=== PATIENT | female | born 1975 | race Caucasian/White ===

== ENCOUNTER 2020-04-30 06:15 | Observation (INO) | payer OTHER ==
[~2020-04-30 06:15] MED LIST: Lactated Ringers 1,000 ML IV SCH
[2020-04-30 07:08] LABS: BLOOD UREA NITROGEN,BUN 11 mg/dL (7.0-18.0); CARBON DIOXIDE,CO2 35.6 mmol/L (21.0-32.0); CHLORIDE,CL 100 mmol/L (98-107); GLUCOSE RANDOM 96 mg/dL (74-106); POTASSIUM,K 3.5 mmol/L (3.5-5.1); SODIUM,NA 141 mmol/L (136-145)
--- NOTE | 2020-04-30 07:33 | PCM.PREANE ---
Preanesthetic Assessment - Anesthesia/Transfusion/Family Hx Anesthesia History: Prior Anesthesia Without Reaction Family History of Anesthesia Reaction: No Transfusion History: No Prior Transfusion(s) Intubation History: Unknown - Review of Systems General: No Symptoms Pulmonary: No Symptoms Cardiovascular: No Symptoms Gastrointestinal: No Symptoms Neurological: No Symptoms Other: Reports: None - Physical Assessment NPO Status Date: 04/29/20 Height: 5 ft 2.5 in Weight: 72.575 kg ASA Class: 2 Mental Status: Alert & Oriented x3 Airway Class: Mallampati = 2 Dentition: Reports: Normal Dentition ROM/Head Extension: Full Lungs: Clear to Auscultation, Normal Respiratory Effort Cardiovascular: Regular Rate, Regular Rhythm - Lab Values: Laboratory Last Values Sodium 141 mmol/L (136-145) 04/30/20 06:35 Potassium 3.5 mmol/L (3.5-5.1) 04/30/20 06:35 Chloride 100 mmol/L (98-107) 04/30/20 06:35 Carbon Dioxide 35.6 mmol/L (21.0-32.0) H 04/30/20 06:35 BUN 11 mg/dL (7.0-18.0) 04/30/20 06:35 Creatinine 0.8 mg/dL (0.6-1.0) 04/30/20 06:35 Est Cr Clr Drug Dosing 71.09 mL/min 04/30/20 06:35 Estimated GFR (MDRD) > 60.0 ml/min 04/30/20 06:35 Glucose 96 mg/dL (74-106) 04/30/20 06:35 Calcium 9.6 mg/dL (8.5-10.1) 04/30/20 06:35 HCG, Qual NEGATIVE (NEG) 04/30/20 06:35 - Allergies Allergies/Adverse Reactions: Allergies Allergy/AdvReac Type Severity Reaction Status Date / Time No Known Allergies Allergy Verified 04/24/20 08:55 - Blood Blood Available: No - Anesthesia Plan Pre-Op Medication Ordered: None - Acknowledgements Anesthesia Type Planned: General Anesthesia Pt an Appropriate Candidate for the Planned Anesthesia: Yes Alternatives and Risks of Anesthesia Discussed w Pt/Guardian: Yes Pt/Guardian Understands and Agrees with Anesthesia Plan: Yes Additional Comments: PMH: htn, gerd, anxiety, mild AI PLAN: get PreAnesthesia Questionnaire HEENT History: Reports: Allergic Rhinitis, Other (See Below) Other HEENT History: wears glasses Cardiovascular History: Reports: Heart Murmur, High Cholesterol, Hypertension Other Cardiovascular History: systolic ejection murmur Respiratory History: Reports: None Gastrointestinal History: Reports: Other (See Below) Other Gastrointestinal History: occasional heartburn Genitourinary History: Reports: None COAT 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: Dysfunctional Uterine Bleeding, Musculoskeletal History: Reports: Fracture Other Musculoskeletal History: fx shoulder as a child Neurological History: Reports: None Psychiatric History: Reports: Anxiety, Depression Other Psychiatric History: dyslexia Endocrine/Metabolic History: Reports: None Hematologic History: Reports: Anemia Immunologic History: Reports: None Oncologic (Cancer) History: Reports: None Dermatologic History: Reports: None - Past Surgical History Head Surgeries/Procedures: Reports: None HEENT Surgical History: Reports: Oral Surgery Cardiovascular Surgical History: Reports: None Respiratory Surgical History: Reports: None GI Surgical History: Reports: None Female Surgical History: Reports: Section Other Female Surgeries/Procedures: hysteroscopy with polypectomy Endocrine Surgical History: Reports: None Neurological Surgical History: Reports: None Musculoskeletal Surgical History: Reports: None Oncologic Surgical History: Reports: None Dermatological Surgical History: Reports: None - SUBSTANCE USE Smoking Status *Q: Never Smoker Recreational Drug Use History: No - HOME MEDS Home Medications: Home Meds Aspirin [Adult Aspirin] 81 mg PO DAILY 10/08/18 [History] Citalopram [Citalopram HBr] 20 mg PO DAILY 10/08/18 [History] Ibuprofen 1 tab PO TID PRN 10/08/18 [History] Mometasone Furoate [Nasonex Andrew] 2 spray NASBOTH DAILY 10/08/18 [History] Multivitamin [Multivitamins] 1 tab PO DAILY 10/08/18 [History] Rosuvastatin [Crestor] 20 mg PO DAILY 10/08/18 [History] dilTIAZem HCL [Cardizem] 30 mg PO DAILY 10/08/18 [History] hydroCHLOROthiazide [Hydrochlorothiazide] 25 mg PO DAILY 10/08/18 [History] Cholecalciferol (Vitamin D3) [Vitamin D3] 5,000 units PO DAILY 04/24/20 [History] Fluconazole [Diflucan] 150 mg PO ASDIRECTED PRN 04/24/20 [History] - CURRENT (IN HOUSE) MEDS Current Meds: Current Medications Lactated Ringer's (Ringers, Lactated) 1,000 mls @ 125 mls/hr IV ASDIRECTED KARLIE
[2020-04-30] MEDS ORDERED: Ondansetron 4 MG/2 ML SDV ONE (08:15)
[2020-04-30] MEDS ORDERED: Propofol 200 MG/20 ML SDV ONE (08:15)
[2020-04-30] MEDS ORDERED: Midazolam 1 MG/ML 2 ML SDV ONE (08:16)
[2020-04-30] MEDS ORDERED: Dexamethasone 4 MG/ML 5 ML MDV ONE (08:16)
[2020-04-30] MEDS ORDERED: fentaNYL 100 MCG/2 ML SDV ONE (08:16)
[2020-04-30] MEDS ORDERED: Glycopyrrolate 0.2 MG/ML SDV ONE (08:16)
[2020-04-30] MEDS ORDERED: Rocuronium Bromide 50 MG/5 ML Syringe ONE ×2 (08:16→09:21)
[2020-04-30] MEDS ORDERED: Ketorolac 30 MG/ML SDV ONE (08:16)
[2020-04-30] MEDS ORDERED: Morphine 10 MG/ML Syringe ONE (08:26)
[2020-04-30] MEDS ORDERED: Sugammadex Sodium 200 MG/2 ML VIAL ONE (08:27)
[2020-04-30] MEDS ORDERED: Fluorescein 5 ML Vial ONE (08:27)
[2020-04-30] MEDS ORDERED: Bupivacaine 0.25% 10 ML SDV ONE (08:28)
[2020-04-30] MEDS ORDERED: Methylene Blue 50 MG/10 ML Ampule ONE (08:28)
[2020-04-30] MEDS ORDERED: Morphine 4 MG/ML Syringe IVPUSH ONE (09:33)
[2020-04-30] MEDS ORDERED: Furosemide 40 MG/4 ML VIAL ONE (11:20)
[2020-04-30] MEDS ORDERED: Ondansetron 4 MG/2 ML SDV IVPUSH PRN (11:58)
[2020-04-30] MEDS ORDERED: Promethazine 25 MG/ML SDV IM PRN (11:58)
[2020-04-30] MEDS ORDERED: Ketorolac 30 MG/ML SDV IVPUSH ONE (11:58)
[2020-04-30] MEDS ORDERED: Morphine 4 MG/ML Syringe IVPUSH PRN (11:58)
[2020-04-30] MEDS ORDERED: Acetaminophen/oxyCODONE 325-5 MG Tab PO PRN (11:58)
--- NOTE | 2020-04-30 12:04 | PCM.OPNOTE ---
- General Post-Op/Procedure Note Date of Surgery/Procedure: 04/30/20 Operative Procedure(s): Laparoscopic-assisted vaginal hysterectomy, bilateral salpingectomy, cystoscopy, lysis of adhesions Findings: Omental adhesions to anterior abdominal wall Enlarged uterus, 10-week size Adhesions of bladder to uterus Normal-appearing ovaries, fallopian tubes, and ureters Bilateral ureteral efflux and normal bladder Pre Op Diagnosis: 44yo with heavy menstruation and dysmenorrhea Post-Op Diagnosis: 44yo with heavy menstruation and dysmenorrhea. Adhesive disease of omentum to anterior abdominal wall and bladder to uterus Anesthesia Technique: General ET Tube Primary Surgeon: Padmaja Rudd Packerhead Machine Operator: Radhika Chirstopher Packerhead Machine Operator: Rasheed Francisco Pathology: Uterus, cervix, bilateral fallopian tubes Fluid Replacement, Intraop: 1,900 Output, Urine Amount: 120 EBL in mLs: 200 Complications: None Condition: Good
[2020-04-30] MEDS ORDERED: HYDROmorphone 2 MG/ML Syringe IVPUSH ONE (12:10)
[2020-04-30] MEDS ORDERED: HYDROmorphone 2 MG/ML Syringe ONE (12:13)
[2020-04-30] MEDS: Acetaminophen/oxyCODONE 325-5 MG Tab PO PRN ×2 (15:51→20:02)
[2020-04-30] MEDS: Ketorolac 30 MG/ML SDV IVPUSH PRN (18:31)
[2020-04-30] MEDS: diphenhydrAMINE 25 MG Cap PO PRN (22:31)
[2020-05-01] MEDS: Acetaminophen/oxyCODONE 325-5 MG Tab PO PRN (01:25)
[2020-05-01] MEDS: diphenhydrAMINE 25 MG Cap PO PRN (04:21)
[2020-05-01] MEDS: Ketorolac 30 MG/ML SDV IVPUSH PRN (04:48)
[2020-05-01 06:50] LABS: BLOOD UREA NITROGEN,BUN 9 mg/dL (7.0-18.0); CARBON DIOXIDE,CO2 31.9 mmol/L (21.0-32.0); CHLORIDE,CL 99 mmol/L (98-107); GLUCOSE RANDOM 126 mg/dL (74-106); POTASSIUM,K 3.7 mmol/L (3.5-5.1); SODIUM,NA 137 mmol/L (136-145)
--- NOTE | 2020-05-01 07:30 | PCM.PN ---
- General Info Date of Service: 05/01/20 Admission Dx/Problem (Free Text): Post [facility] Subjective Update: Pt feeling well today. She did have a mild reaction after taking her percocet. She felt itchy and may have had a rash. Symptoms improved after administration of benadryl. Pain has been well-controlled with medication. She has been ambulating. She has voided urine. She has not yet had a bowel movement and notes her abdomen has been a bit distended. She has been tolerating oral diet with no nausea or vomiting. Functional Status: Reports: Pain Controlled, Tolerating Diet - Review of Systems General: Reports: No Symptoms HEENT: Reports: No Symptoms Pulmonary: Reports: No Symptoms Cardiovascular: Reports: No Symptoms Gastrointestinal: Reports: Abdominal Pain, Constipation, Other (bloating) Genitourinary: Reports: No Symptoms Musculoskeletal: Reports: No Symptoms Skin: Reports: No Symptoms Neurological: Reports: No Symptoms Psychiatric: Reports: No Symptoms - Patient Data Vitals - Most Recent: Last Vital Signs Temp 98.4 F 05/01/20 04:41 Pulse 75 05/01/20 04:41 Resp 16 05/01/20 04:41 BP 131/69 05/01/20 04:41 Pulse Ox 94 L 05/01/20 04:41 Weight - Most Recent: 160 lb I&O - Last 24 Hours: Intake & Output 04/30/20 05/01/20 05/01/20 22:59 06:59 14:59 Intake Total 1800 1800 Output Total 450 2100 Balance 1350 -300 Lab Results Last 24 Hours: Laboratory Results - last 24 hr 04/30/20 04/30/20 04/30/20 Range/Units 06:30 06:35 06:35 WBC 7.02 (4.0-11.0) K/uL RBC 5.83 (4.30-5.90) M/uL Hgb 15.5 (12.0-16.0) g/dL Hct 46.4 H (36.0-46.0) % MCV 79.6 L (80.0-98.0) fL MCH 26.6 L (27.0-32.0) pg MCHC 33.4 (31.0-37.0) g/dL Plt Count 294 (150-400) K/uL MPV 8.90 (7.40-12.00) fL Neut % (Auto) 52.1 (48.0-80.0) % Lymph % (Auto) 34.8 (16.0-40.0) % Ramsey % (Auto) 9.5 (0.0-15.0) % Eos % (Auto) 3.3 (0.0-7.0) % Baso % (Auto) 0.3 (0.0-1.5) % Neut # (Auto) 3.7 (1.4-5.7) K/uL Lymph # (Auto) 2.4 (0.6-2.4) K/uL Ramsey # (Auto) 0.7 (0.0-0.8) K/uL Eos # (Auto) 0.2 (0.0-0.7) K/uL Baso # (Auto) 0.0 (0.0-0.1) K/uL Nucleated RBC % 0.0 /100WBC Nucleated RBCs # 0 K/uL Sodium (136-145) mmol/L Potassium (3.5-5.1) mmol/L Chloride (98-107) mmol/L Carbon Dioxide (21.0-32.0) mmol/L BUN (7.0-18.0) mg/dL Creatinine (0.6-1.0) mg/dL Est Cr Clr Drug Dosing mL/min Estimated GFR (MDRD) ml/min Glucose (74-106) mg/dL Calcium (8.5-10.1) mg/dL SARS Virus RNA (PCR) NEGATIVE (NEGATIVE) Blood Type A NEGATIVE Antibody Screen NEGATIVE 05/01/20 05/01/20 Range/Units 05:48 05:48 WBC 12.64 H (4.0-11.0) K/uL RBC 4.91 (4.30-5.90) M/uL Hgb 12.7 (12.0-16.0) g/dL Hct 39.4 (36.0-46.0) % MCV 80.2 (80.0-98.0) fL MCH 25.9 L (27.0-32.0) pg MCHC 32.2 (31.0-37.0) g/dL Plt Count 287 (150-400) K/uL MPV 9.50 (7.40-12.00) fL Neut % (Auto) 84.7 H (48.0-80.0) % Lymph % (Auto) 9.2 L (16.0-40.0) % Ramsey % (Auto) 6.1 (0.0-15.0) % Eos % (Auto) 0.0 (0.0-7.0) % Baso % (Auto) 0.0 (0.0-1.5) % Neut # (Auto) 10.7 H (1.4-5.7) K/uL Lymph # (Auto) 1.2 (0.6-2.4) K/uL Ramsey # (Auto) 0.8 (0.0-0.8) K/uL Eos # (Auto) 0.0 (0.0-0.7) K/uL Baso # (Auto) 0.0 (0.0-0.1) K/uL Nucleated RBC % 0.0 /100WBC Nucleated RBCs # 0 K/uL Sodium 137 (136-145) mmol/L Potassium 3.7 (3.5-5.1) mmol/L Chloride 99 (98-107) mmol/L Carbon Dioxide 31.9 (21.0-32.0) mmol/L BUN 9 (7.0-18.0) mg/dL Creatinine 0.6 (0.6-1.0) mg/dL Est Cr Clr Drug Dosing 94.79 mL/min Estimated GFR (MDRD) > 60.0 ml/min Glucose 126 H (74-106) mg/dL Calcium 8.8 (8.5-10.1) mg/dL SARS Virus RNA (PCR) (NEGATIVE) Blood Type Antibody Screen Med Orders - Current: Current Medications Citalopram Hydrobromide (Celexa) 20 mg PO DAILY [facility] Diltiazem HCl (Cardizem Cd) 120 mg PO DAILY KARLIE Diphenhydramine HCl (Benadryl) 25 mg PO Q6H PRN PRN Reason: Itching Last Admin: 05/01/20 04:21 Dose: 25 mg Documented by: Hydrochlorothiazide (Hydrochlorothiazide) 25 mg PO DAILY KARLIE Lactated Ringer's (Ringers, Lactated) 1,000 mls @ 125 mls/hr IV ASDIRECTED KARLIE Last Admin: 04/30/20 07:51 Dose: 125 mls/hr Documented by: Ibuprofen (Motrin) 800 mg PO Q8H PRN PRN Reason: Pain (mild 1-3) Ketorolac Tromethamine (Toradol) 30 mg IVPUSH Q6H PRN PRN Reason: Pain (severe 7-10) Stop: 05/01/20 11:59 Last Admin: 05/01/20 04:48 Dose: 30 mg Documented by: Mometasone Furoate (Nasonex [place]) 0 gm NASBOTH DAILY [facility] Morphine Sulfate (Morphine) 4 mg IVPUSH Q2H PRN PRN Reason: Pain (severe 7-10) Last Admin: 04/30/20 22:49 Dose: 4 mg Documented by: Ondansetron HCl (Zofran) 4 mg IVPUSH Q6H PRN PRN Reason: Nausea/Vomiting Oxycodone/Acetaminophen (Percocet 325-5 Mg) 1 tab PO Q4H PRN PRN Reason: Pain (moderate 4-6) Last Admin: 05/01/20 01:25 Dose: 1 tab Documented by: Oxycodone/Acetaminophen (Percocet 325-5 Mg) 2 tab PO Q4H PRN PRN Reason: Pain (moderate 4-6) Promethazine HCl (Phenergan) 25 mg IM Q6H PRN PRN Reason: Nausea/Vomiting Rosuvastatin Calcium (Crestor) 20 mg PO DAILY KARLIE Discontinued Medications Bupivacaine HCl (Sensorcaine-Mpf 0.25%) Confirm Administered Dose 10 ml .ROUTE .STK-MED ONE Stop: 04/30/20 08:29 Dexamethasone (Dexamethasone) Confirm Administered Dose 20 mg .ROUTE .STK-MED ONE Stop: 04/30/20 08:17 Fentanyl (Sublimaze) Confirm Administered Dose 200 mcg .ROUTE .STK-MED ONE Stop: 04/30/20 08:17 Fluorescein Sodium (Ak-Fluor) Confirm Administered Dose 5 ml .ROUTE .STK-MED ONE Stop: 04/30/20 08:28 Furosemide (Lasix) Confirm Administered Dose 40 mg .ROUTE .STK-MED ONE Stop: 04/30/20 11:21 Glycopyrrolate (Robinul) Confirm Administered Dose 0.2 mg .ROUTE .STK-MED ONE Stop: 04/30/20 08:17 Hydromorphone HCl (Dilaudid) 1 mg IVPUSH ONETIME ONE Stop: 04/30/20 12:11 Last Admin: 04/30/20 12:17 Dose: 1 mg Documented by: Hydromorphone HCl (Dilaudid) Confirm Administered Dose 2 mg .ROUTE .STK-MED ONE Stop: 04/30/20 12:14 Last Admin: 04/30/20 13:44 Dose: Not Given Documented by: Acetaminophen (Ofirmev) Confirm Administered Dose 100 mls @ as directed .ROUTE .STK-MED ONE Stop: 04/30/20 08:28 Ketorolac Tromethamine (Toradol) Confirm Administered Dose 30 mg .ROUTE .STK-MED ONE Stop: 04/30/20 08:17 Ketorolac Tromethamine (Toradol) 30 mg IVPUSH ONETIME ONE Stop: 04/30/20 11:59 Last Admin: 04/30/20 12:14 Dose: 30 mg Documented by: Methylene Blue (Provayblue) Confirm Administered Dose 50 mg .ROUTE .STK-MED ONE Stop: 04/30/20 08:29 Midazolam HCl (Versed 1 Mg/Ml) Confirm Administered Dose 2 mg .ROUTE .STK-MED ONE Stop: 04/30/20 08:17 Morphine Sulfate (Morphine) Confirm Administered Dose 10 mg .ROUTE .STK-MED ONE Stop: 04/30/20 08:27 Morphine Sulfate (Morphine) 4 mg IVPUSH ONETIME ONE Stop: 04/30/20 09:34 Last Admin: 04/30/20 12:01 Dose: 4 mg Documented by: Ondansetron HCl (Zofran) Confirm Administered Dose 4 mg .ROUTE .STK-MED ONE Stop: 04/30/20 08:16 Propofol (Diprivan 20 Ml) Confirm Administered Dose 400 mg .ROUTE .STK-MED ONE Stop: 04/30/20 08:16 Rocuronium [place] (Rocuronium [place]) Confirm Administered Dose 50 mg .ROUTE .STK-MED ONE Stop: 04/30/20 08:17 Rocuronium [place] (Rocuronium [place]) Confirm Administered Dose 50 mg .ROUTE .STK-MED ONE Stop: 04/30/20 09:22 Sugammadex Sodium (Bridion) Confirm Administered Dose 200 mg .ROUTE .STK-MED ONE Stop: 04/30/20 08:28 - Exam General: Alert, Oriented, No Acute Distress HEENT: Pupils Equal, Pupils Reactive, EOMI Neck: Supple, Trachea Midline, No JVD Lungs: Clear to Auscultation, Normal Respiratory Effort. No: Rhonchi, Rub, Stridor, Wheezing Cardiovascular: Regular Rate, Regular Rhythm, Murmurs (systolic murmur). No: Gallops, Rubs GI/Abdominal Exam: Normal Bowel Sounds, Soft, Distended, Tender. No: Guarding, Rigid (Female) Exam: Deferred Extremities: Normal Inspection, Non-Tender, No Pedal Edema Skin: Warm, Intact Wound/Incisions: Dressing Dry and Intact. No: Erythema Neurological: No New Focal Deficit, Normal Speech, Normal Tone Psy/Mental Status: Alert, Normal Affect, Normal Mood Sepsis Event Note - Evaluation Sepsis Screening Result: No Definite Risk - Focused Exam Vital Signs: Vital Signs Temp Pulse Resp BP Pulse Ox 05/01/20 04:41 98.4 F 75 16 131/69 94 L 04/30/20 19:43 99.0 F 82 16 116/69 96 Date Exam was Performed: 05/01/20 Time Exam was Performed: 07:36 - Problem List & Annotations (1) S/P laparoscopic assisted vaginal hysterectomy (LAVH) SNOMED Code(s): 925606981, 81407122, 392719841 Code(s): Z90.710 - ACQUIRED ABSENCE OF BOTH CERVIX AND UTERUS Status: Acute Current Visit: Yes - Problem List Review Problem List Initiated/Reviewed/Updated: Yes - Assessment Assessment:: 44yo female s/p LAVH. No complications. POD#1 - Plan Plan:: Routine care Discharge today.
--- NOTE | 2020-05-01 08:13 | PCM48HPAN ---
Post Anesthesia Note - EVALUATION WITHIN 48HRS OF ANESTHETIC Vital Signs in Normal Range: Yes Patient Participated in Evaluation: Yes Respiratory Function Stable: Yes Airway Patent: Yes Cardiovascular Function Stable: Yes Hydration Status Stable: Yes Pain Control Satisfactory: Yes (bloating) Nausea and Vomiting Control Satisfactory: Yes Mental Status Recovered: Yes Vital Signs: Last Vital Signs Temp 37.4 C 05/01/20 08:08 Pulse 74 05/01/20 08:10 Resp 16 05/01/20 08:08 BP 121/69 05/01/20 08:10 Pulse Ox 94 L 05/01/20 08:08
[2020-05-01] MEDS ORDERED: Mometasone Furoate Nasal Spray 17 GM Canister NASBOTH SCH (09:00)
[2020-05-01] MEDS ORDERED: Hydrochlorothiazide 25 MG Tab PO SCH (09:00)
[2020-05-01] MEDS ORDERED: Citalopram 20 MG Tab PO SCH (09:00)
[2020-05-01] MEDS ORDERED: Rosuvastatin 10 MG Tab PO SCH (09:00)
[2020-05-01] MEDS ORDERED: Diltiazem 120 MG Cap.CD PO SCH (09:00)
--- NOTE | 2020-05-01 09:25 | OR ---
SURGEON: Padmaja Rudd MD DATE OF PROCEDURE: 04/30/2020 PREOPERATIVE DIAGNOSES: 1. 44-year-old, G1, P1. 2. Heavy menstruation. 3. Dysmenorrhea. POSTOPERATIVE DIAGNOSES: 1. 44-year-old, G1, P1. 2. Heavy menstruation. 3. Dysmenorrhea. 4. Adhesive disease in pelvis. PROCEDURES: Laparoscopic-assisted vaginal hysterectomy, bilateral salpingectomy, cystoscopy, lysis of adhesions. PRIMARY SURGEON: Padmaja Rudd MD ASSISTANTS: Radhika Christopher M.D. and Rasheed Francisco, medical student. ANESTHESIA: General endotracheal. COMPLICATIONS: None. ESTIMATED BLOOD LOSS: 200 mL. IV FLUIDS: 1900 mL LR. URINE OUTPUT: 125 mL. SPECIMEN: Uterus and bilateral tubes. ANTIBIOTIC PROPHYLAXIS: 2 g Ancef IV. FINDINGS: Eight-week size uterus that sounded to 8 cm. Omental adhesions to the anterior abdominal wall. Adhesions of bladder to anterior uterus. Bilateral tubes and ovaries normal. Bilateral ureteral efflux on cystoscopy. DESCRIPTION OF PROCEDURE: The patient was taken to the operating room with IV fluids running. General anesthesia was obtained without difficulty. The patient was placed in the dorsal lithotomy position with legs in Yellofins stirrups. The patient was prepared and draped and a Hercules catheter was inserted. A Graves speculum was placed into the vagina. The anterior lip of the cervix was grasped with an Allis clamp. The uterus was sounded to 8 cm. The cervix was dilated with Hegar dilators to a size 7. A HUMI uterine manipulator was introduced and the speculum was removed. The surgeon's gloves were changed. 0.25% Marcaine without epinephrine was infiltrated into the umbilical fold. A small vertical skin incision was made in the umbilical fold. A 5 mm trocar was inserted into the abdomen under direct laparoscopic visualization. The pneumoperitoneum was established with CO2 gas to a pressure of 15 mmHg. An intraabdominal survey revealed normal-appearing liver, gallbladder and stomach. The pelvic anatomy was as noted above. A 5 mm trocar was inserted in the left lower quadrant under direct laparoscopic visualization. The LigaSure device was used to clamp, coagulate, and transect the omental adhesions to the anterior abdominal wall, taking care to ensure no bowel was injured. A 5 mm trocar was then inserted into the right lower quadrant under direct laparoscopic visualization. The uterus was elevated from the pelvis with the uterine manipulator. The right ovary was retracted using an atraumatic grasper and peristalsis of the right ureter was noted. The right fallopian tube was grasped with an atraumatic grasper and the LigaSure device used to clamp, coagulate, and transect the fallopian tube from the ovary to the level of the cornua. The round and broad ligaments were sequentially transected with the LigaSure device until the uterine artery was exposed. The uterine artery was clamped, coagulated, and transected with hemostasis. The procedure was repeated on the right side. The vesicouterine peritoneum was opened with the LigaSure device and gentle traction, and the bladder was dissected off the lower uterine segment. Laparoscopic resections were completed at this point. The pneumoperitoneum was released. The patient was repositioned in the dorsal lithotomy position with the legs flexed and thighs slightly abducted. The uterine manipulator was removed. The cervix was grasped with a Esmer tenaculum. A circumferential incision was made on the cervix with a Bovie. Blunt and sharp dissection was performed along the appropriate plane. The posterior cul-de-sac was entered sharply with Jasmine scissors and bloody peritoneal fluid was noted. The uterosacral and cardinal ligaments were sequentially clamped, transected, and suture ligated. The anterior cul-de-sac was then entered easily. The uterus and tubes were delivered through the vagina and sent to pathology. The vaginal angles were transfixed to the uterosacral ligaments. Hemostasis was noted. The vaginal cuff was closed with a running lock stitch of 0 Vicryl suture. A 70-degree cystoscope was introduced through the urethra into the bladder. The ureteral orifices were noted bilaterally to efflux urine. A systematic inspection of the bladder was completed and there were no obvious lesions. The surgeon's gloves were changed. The pneumoperitoneum was re-established. The pelvis was irrigated inspected with no active bleeding noted. All instruments removed from the abdomen. All counts were correct x2. The patient was taken to recovery room in stable condition. ASHLEY / MARIO /[id number]
[2020-05-01] MEDS ORDERED: Ibuprofen 800 MG Tab PO PRN (12:00)
== END 2020-05-01 09:45 | disposition home or self-care (01) ==
LOC: MW.SDS 06:15 → MW.MS 11:58 → MW.SDS 12:36 → MW.MS 12:36 → MW.SDS 05-01 09:45 → MW.MS 05-01 09:45
PROVIDERS: ADMIT Obstetrics & Gynecology; ATTEND Obstetrics & Gynecology
DX: D25.9 Leiomyoma of uterus, unspecified (principal); N85.8 Other specified noninflammatory disorders of uterus; E78.00 Pure hypercholesterolemia, unspecified; K21.9 Gastro-esophageal reflux disease without esophagitis; I10 Essential (primary) hypertension; F41.0 Panic disorder [episodic paroxysmal anxiety]; D50.0 Iron deficiency anemia secondary to blood loss (chronic); Z11.59 Encounter for screening for other viral diseases; Z79.899 Other long term (current) drug therapy; Z79.82 Long term (current) use of aspirin; Z87.42 Personal history of other diseases of the female genital tract; Z80.3 Family history of malignant neoplasm of breast; Z79.891 Long term (current) use of opiate analgesic
CPT/HCPCS: 00944; 36415; 80048; 84703; 85025; 86850; 86900; 86901; 88309; A9270-GY; J0131; J1100; J1170; J1885; J1940; J2250; J2270; J2405; J2704; J3010; J3490; J7120; U0002

== ENCOUNTER 2025-06-30 11:01 | Emergency (ER) | payer BC, OTHER ==
[2025-06-30] MEDS: fentaNYL 100 MCG/2 ML SDV IM ONE (11:25)
== END 2025-06-30 12:14 | disposition home or self-care (01) ==
LOC: MW.ED 11:01
DX: S82.832A Other fracture of upper and lower end of left fibula, initial encounter for closed fracture (principal); I10 Essential (primary) hypertension; E78.00 Pure hypercholesterolemia, unspecified; Z90.710 Acquired absence of both cervix and uterus; Z79.82 Long term (current) use of aspirin; Z79.899 Other long term (current) drug therapy; W01.0XXA Fall on same level from slipping, tripping and stumbling without subsequent striking against object, initial encounter
CPT/HCPCS: 73610; 96372; 99283; J3010

== ENCOUNTER 2025-07-05 08:50 | Day surgery (SDC) | payer BC, OTHER ==
[~2025-07-05 08:50] MED LIST changes: -Lactated Ringers 1,000 ML IV SCH; +ceFAZolin 2 GM in Water For Injection, Sterile 20 ML IVPUSH ONE
[2025-07-05] MEDS ORDERED: fentaNYL 50 MCG/ML SDV IVPUSH PRN (08:57)
[2025-07-05] MEDS ORDERED: Albuterol 0.083% 2.5 MG/3 ML Neb Soln NEB PRN (08:57)
[2025-07-05] MEDS ORDERED: Ondansetron 4 MG/2 ML SDV IVPUSH PRN (08:57)
[2025-07-05] MEDS ORDERED: Naloxone 0.4 MG/ML SDV IVPUSH PRN (08:57)
[2025-07-05] MEDS ORDERED: Bupivacaine 0.5%/EPINEPHrine 1:200,000 30 ML SDV ONE (09:23)
[2025-07-05] MEDS ORDERED: Ropivacaine 0.5% 5 MG/ML 30 ML SDV ONE (09:27)
[2025-07-05] MEDS: Lactated Ringers 1,000 ML IV SCH (09:56)
[2025-07-05] MEDS ORDERED: Midazolam 1 MG/ML 2 ML SDV ONE (10:14)
[2025-07-05] MEDS ORDERED: fentaNYL 100 MCG/2 ML SDV ONE (10:15)
[2025-07-05] MEDS ORDERED: Propofol 200 MG/20 ML SDV ONE (10:15)
[2025-07-05] MEDS ORDERED: Ketamine HCL/NACL, ISO-OSM 50 MG/5 ML Syringe ONE (10:50)
[2025-07-05] MEDS ORDERED: Dexamethasone 4 MG/ML 5 ML MDV ONE (11:19)
[2025-07-05] MEDS ORDERED: Ondansetron 4 MG/2 ML SDV ONE (11:19)
[2025-07-05] MEDS ORDERED: ePHEDrine 50 MG/ML SDV ONE (11:26)
[2025-07-05] MEDS ORDERED: Ketorolac 30 MG/ML SDV ONE (12:08)
== END 2025-07-05 14:25 | disposition home or self-care (01) ==
LOC: MW.SDS 08:50
PROVIDERS: ATTEND Orthopaedic Surgery
DX: S82.832A Other fracture of upper and lower end of left fibula, initial encounter for closed fracture (principal); S82.892A Other fracture of left lower leg, initial encounter for closed fracture; S93.422A Sprain of deltoid ligament of left ankle, initial encounter; I10 Essential (primary) hypertension; E78.00 Pure hypercholesterolemia, unspecified; E66.9 Obesity, unspecified; Z68.37 Body mass index [BMI] 37.0-37.9, adult; Z79.82 Long term (current) use of aspirin; Z79.899 Other long term (current) drug therapy
CPT/HCPCS: 27792; 64445; C1713; J0690; J0694; J1100; J1171; J1885; J2250; J2405; J2704; J2795; J3010; J7120; J0665; J3490